=== PATIENT | male | born 1960 | race Hispanic/Latino ===

== ENCOUNTER 2021-04-12 12:03 | Emergency (ER) | payer SELFPAY ==
[2021-04-12] MEDS ORDERED: Mupirocin 2% Ointment 22 GM Tube ONE ×2 (12:37→12:40)
[2021-04-12] MEDS ORDERED: Boostrix 0.5 ML (Tdap) VIAL ONE (13:14)
== END 2021-04-12 13:40 | disposition home or self-care (01) ==
LOC: MADERS 12:03
DX: T23.252A Burn of second degree of left palm, initial encounter (principal); T24.212A Burn of second degree of left thigh, initial encounter; T24.202A Burn of second degree of unspecified site of left lower limb, except ankle and foot, initial encounter; T22.20XA Burn of second degree of shoulder and upper limb, except wrist and hand, unspecified site, initial encounter; T31.0 Burns involving less than 10% of body surface; F17.210 Nicotine dependence, cigarettes, uncomplicated; X08.8XXA Exposure to other specified smoke, fire and flames, initial encounter
CPT/HCPCS: 16025; 90471; 90715

== ENCOUNTER 2022-01-27 16:55 | Emergency (ER) | payer MEDICARE ==
[2022-01-27 17:39] LABS: #Basophils 0.1 thou/uL (0.0-0.2); #Eosinphils 0.1 thou/uL (0.0-0.7); #Monocytes 0.6 thou/uL (0.11-0.59); #Neutrophils 4.7 thou/uL (1.40-6.50); %Basophils 1.6 % (0.0-1.0); %Eosinophils 1.8 % (0.0-10.0); %Monocytes 8.6 % (0.0-10.0); Mean Corpuscular HGB CONC 34.2 g/dL (32.0-36.0); Mean Corpuscular Hemoglobin 33.2 pg (27.0-31.0); Mean Platelet Volume 6.6 fL (7.4-10.4); Platelet Count 234 thou/uL (130-400); RBC Distribution Width 10.9 % (11.5-14.5); Red Blood Cell (RBC) Count 4.22 mill/uL (4.70-6.10); White Blood Cell (WBC) Count 6.5 thou/uL (4.8-10.8)
[2022-01-27 17:52] LABS: Acetaminophen Less than 10.0 mcg/mL (10.0-30.0); Alcohol Less than 10 mg/dL (Less than 10); Salicylate Less than 8.0 mg/dL (15.0-30.0)
[2022-01-27 17:54] LABS: ALT (SGPT) 66 U/L (8-55); AST (SGOT) 65 U/L (5-34); Albumin 3.4 g/dL (3.5-5.0); Alkaline Phosphatase 71 U/L (40-110); Anion Gap 15 mmol/L (10-20); BUN (Urea Nitrogen) 15 mg/dL (8.4-25.7); Bilirubin, Total 1.2 mg/dL (0.2-1.2); Calc. Creatinine Clearance 0 mL/min (70-130); Calcium 8.5 mg/dL (7.8-10.44); Carbon Dioxide 27 mmol/L (22-29); Chloride 99 mmol/L (98-107); Estimated GFR 104; Globulin 2.4 g/dL (2.4-3.5); Glucose 109 mg/dL (70-105); Magnesium 1.8 mg/dL (1.6-2.6); Potassium 3.1 mmol/L (3.5-5.1); Protein, Total 5.8 g/dL (6.0-8.3); Sodium 138 mmol/L (136-145)
[2022-01-27 20:01] LABS: Bilirubin Negative (Negative); Blood, Urine Negative (Negative); Clarity Clear (Clear); Glucose, Urine (Dipstick) Negative (Negative); Ketone, Urine Trace mg/dL (Negative); Leukocyte Negative (Negative); Nitrite Negative (Negative); Protein, Urine (Dipstick) Negative (Neg-Trace); Specific Gravity, Urine 1.015 (1.005-1.030); Urobilinogen 0.2 mg/dL (Less than 2); pH, Urine 6.5 (5.0-9.0)
[2022-01-27 20:06] LABS: Amphetamine Not Detected (NotDetected); Barbiturates Screen Not Detected (NotDetected); Benzodiazepine Screen Not Detected (NotDetected); Cocaine Metabolite Screen Not Detected (NotDetected); Medtox Control Line Valid? VALID (VALID); Methadone Not Detected (NotDetected); Methamphetamine Not Detected (NotDetected); Opiate Screen Not Detected (NotDetected); Oxycodone Screen Not Detected (NotDetected); Phencyclidine (PCP) Not Detected (NotDetected); THC/Cannabinoid Screen Not Detected (NotDetected); Tricyclic Screen Not Detected (NotDetected)
[2022-01-27] MEDS ORDERED: Potassium Chloride 20 MEQ TAB ONE (20:19)
[2022-01-27] MEDS ORDERED: Sodium Chloride 0.9% 1,000 ML ONE (21:46)
[2022-01-27] MEDS ORDERED: Thiamine HCl 200 MG/2 ML VIAL ONE (21:46)
== END 2022-01-27 22:37 | disposition short-term general hospital (02) ==
LOC: MADERS 16:55
DX: E87.6 Hypokalemia (principal); R41.82 Altered mental status, unspecified; F17.210 Nicotine dependence, cigarettes, uncomplicated
CPT/HCPCS: 70450; 71045; 80053; 80306; 80307; 81003; 82140; 83605; 83735; 84443; 84484; 85025; 93005; 94760; 96360; 96372; J3411; J7050